=== PATIENT | female | born 1995 | race Caucasian/White ===

== ENCOUNTER 2018-01-25 18:32 | Emergency (ER) | payer OTHER ==
--- NOTE | 2018-01-25 18:53 | ER Document Report ---
ED General - General Chief Complaint: Headache Stated Complaint: HEADACHE Time Seen by Provider: 01/25/18 18:53 Notes: Patient is a 22-year-old female with history of migraines that presents to the emergency department for chief complaint of headache. Patient states that she has been having headaches for approximately 2 years, but they have been more frequent in the last 6 months in particular over the last 2 weeks. She was seen at a different emergency department 2 days ago, and was treated with a migraine cocktail, and she states it did not help much, just made her drowsy. She is been having associated nausea and vomiting, mild photophobia. She today took 800 mg of Motrin without much relief of her headache. She has been prescribed propranolol, and sumatriptan in the past, which have not been helping her. She has been trying to get an appointment with neurology but has not been able to yet. She denies any numbness, tingling or weakness, denies facial droop or slurred speech, or loss of vision. She states that these headaches are gradual in onset, and build up from the morning. She currently rates her headache as a 5 out of 10, and at worst it was an 8 out of 10. Past Medical History: Migraine headaches Past Surgical History: Denies surgical history Social History: Denies tobacco, alcohol or illicit drug use. Family History: Reviewed and noncontributory for presenting illness Allergies: Reviewed, see documented allergy list. REVIEW OF SYSTEMS: Other than noted above, the 12 point review of systems was reviewed with the patient and were negative, all pertinent findings are included in the HPI. PHYSICAL EXAMINATION: Vital signs reviewed, nursing noted reviewed. GENERAL: Well-appearing, well-nourished and in no acute distress. HEAD: Atraumatic, normocephalic. EYES: Eyes appear normal, extraocular movements intact, sclera anicteric, conjunctiva are normal. ENT: nares patent, oropharynx clear without exudates. Moist mucous membranes. NECK: Normal range of motion, supple without lymphadenopathy LUNGS: Breath sounds clear to auscultation bilaterally and equal. No wheezes rales or rhonchi. HEART: Regular rate and rhythm without murmurs ABDOMEN: Soft, nontender, normoactive bowel sounds. No rebound, guarding, or rigidity. No masses appreciated. EXTREMITIES: Nontender, good range of motion, no pitting or edema. NEUROLOGICAL: No focal neurological deficits. Moves all extremities spontaneously Motor and sensory grossly intact on exam. PSYCH: Normal mood, normal affect. SKIN: Warm, Dry, normal turgor, no rashes or lesions noted on exposed skin TRAVEL OUTSIDE OF THE [place] IN LAST 30 DAYS: No - Related Data Allergies/Adverse Reactions: No Known Allergies Allergy (Unverified 01/25/18 18:37) Past Medical History - Social History Smoking Status: Never Smoker Family History: Reviewed & Not Pertinent Physical Exam - Vital signs Vitals: Temp Pulse Resp BP Pulse Ox 98.1 F 60 14 124/69 98 01/25/18 18:41 01/25/18 18:41 01/25/18 18:41 01/25/18 18:41 01/25/18 18:41 Course - Re-evaluation Re-evalutation: Patient seen and examined vital signs reviewed. Laboratory data ordered as appropriate for the patient's presenting symptoms and complaint, with consideration of any critical or life threatening conditions that may be associated with their obtained history and exam as noted above. Patient was treated with IV fluids, Reglan, dexamethasone, and IV magnesium, after hCG was found to be negative, patient was also given Toradol, and Fioricet for her headache Patient's headache pattern is acute on chronic, she has had headaches for over 2 years, these are particularly different from the one she has had in the past, just seemingly more frequent. I do not feel the patient is high risk for subarachnoid hemorrhage, given lack of history of aneurysm, and pattern of her headaches. Results were reviewed when available and demonstrated negative hCG The patient was re-evaluated and was markedly improved, stated her headache was essentially resolved, nausea completely resolved. Evaluation was most consistent with headache, likely migraine type, advised patient of find a primary care physician, and get referral to neurology, she may need adjustment of maintenance medications to reduce her frequency of migraines, she is given a prescription for Fioricet to comment take as needed for headache, but if it became severe to return to the emergency department. Results were discussed with the patient at this point, after careful consideration I feel that that patient can be discharged from the emergency department, the patient was educated treatments and reasons to return to the emergency department based on their presumed diagnosis as noted above, they were advised to followup with a primary care physician in 2-3 days. Patient was agreeable to plan of care. *Note is created using voice recognition software and may contain spelling, syntax or grammatical errors. Laboratory 01/25/18 19:56 Urine HCG, Qual NEGATIVE - Vital Signs Vital signs: Temp Pulse Resp BP Pulse Ox 98.1 F 60 14 122/79 96 01/25/18 18:41 01/25/18 18:41 01/25/18 18:41 01/25/18 21:01 01/25/18 21:01 Discharge - Discharge Clinical Impression: Headache Qualifiers: Headache type: unspecified Headache chronicity pattern: acute headache Intractability: not intractable Qualified Code(s): R51 - Headache Condition: Stable Disposition: HOME, SELF-CARE Instructions: Headache ([facility]) Additional Instructions: Please do not hesitate to return to the emergency department if you have worsening symptoms or your headache becomes severe, and if you have any associated vomiting, blurred vision, numbness, tingling or weakness. Prescriptions: Butalb/Acetaminophen/Caffeine [Fioricet (50-325-40 mg) Tablet] 1 tab PO Q6H PRN #10 tab PRN Reason: headache Referrals: WALLY MURPHY MD [ACTIVE STAFF] - Follow up in 3-5 days (or another primary care. )
[2018-01-25] MEDS ORDERED: NORMAL SALINE 1000 ML 1,000 ML IV ONE (19:13)
[2018-01-25] MEDS ORDERED: METOCLOPRAMIDE HCL INJ/PF 10 MG/2 ML SDV IV ONE (19:14)
[2018-01-25] MEDS ORDERED: MAGNESIUM SULFATE/D5W 1 GM/100 ML RTUPB IV ONE (19:14)
[2018-01-25] MEDS ORDERED: DEXAMETHASONE SOD PHOS INJ 10 MG/1 ML VIAL IV ONE (19:14)
[2018-01-25] MEDS ORDERED: BUTALB/ACETAMINOPHEN/CAFFEINE 1 TAB EACH PO ONE (20:24)
[2018-01-25] MEDS ORDERED: KETOROLAC TROMETHAMINE INJ/PF 30 MG/1 ML SDV IV ONE (20:24)
[2018-01-25 22:19] VITALS: BP 131/80
== END 2018-01-25 22:18 | disposition home or self-care (01) ==
LOC: ER 18:32
DX: R51 Headache (principal); R11.2 Nausea with vomiting, unspecified; H53.149 Visual discomfort, unspecified; Z79.899 Other long term (current) drug therapy
CPT/HCPCS: 99283; 96361; 96375; 96365; 81025; J3490; J1885; J2765; J3475; J7030; J1100

== ENCOUNTER 2019-05-10 20:13 | Emergency (ER) | payer OTHER ==
--- NOTE | 2019-05-10 21:19 | ER Document Report ---
HPI - HPI Time Seen by Provider: 05/10/19 21:16 Pain Level: 3 Notes: Patient is a 24-year-old female no significant past medical history presents complaining of urinary burning, urgency, frequency that began a couple hours ago. She is otherwise able to eat and drink without difficulty. She is having normal bowel moods. No vaginal bleeding, odor, or discharge. Denies drug allergies. No other concerns or complaints. Denies any headache, fever, neck pain, URI, sore throat, chest pain, palpitations, syncope, cough, shortness of breath, wheeze, dyspnea, abdominal pain, nausea/vomiting/diarrhea, urinary retention, back pain, loss of control of bowel or bladder, numbness/tingling, saddle anesthesia, muscle paralysis/weakness, or rash. - ROS Systems Reviewed and Negative: Yes All other systems reviewed and negative - CONSTITUTIONAL Constitutional: DENIES: Fever, Chills - URINARY Urinary: DENIES: Dysuria, Urgency, Frequency - REPRODUCTIVE LMP: 04/22/19 Reproductive: DENIES: : Past Medical History - General Last Menstrual Period: 04/22/19 - Social History Smoking Status: Never Smoker Chew tobacco use (# tins/day): No Frequency of alcohol use: None Drug Abuse: None Family History: Reviewed & Not Pertinent Patient has suicidal ideation: No Patient has homicidal ideation: No Neurological Medical History: Reports: Hx Migraine Renal/ Medical History: Denies: Hx Peritoneal Dialysis Vertical Provider Document - CONSTITUTIONAL Agree With Documented VS: Yes Notes: PHYSICAL EXAMINATION: GENERAL: Well-appearing, well-nourished and in no acute distress. LUNGS: Breath sounds clear to auscultation bilaterally and equal. No wheezes rales or rhonchi. HEART: Regular rate and rhythm without murmurs, rubs, gallops. ABDOMEN: Soft, nontender, nondistended abdomen. No guarding, no rebound. Normal bowel sounds present. No CVA tenderness bilaterally. NEUROLOGICAL: Normal speech, normal gait. PSYCH: Normal mood, normal affect. SKIN: Warm, Dry, normal turgor, no rashes or lesions noted. - INFECTION CONTROL TRAVEL OUTSIDE OF THE [place] IN LAST 30 DAYS: No Course - Re-evaluation Re-evalutation: 05/10/19 22:18 Patient is an afebrile, well-hydrated, 24-year-old female who presents to the ED with an acute UTI. Vitals are acceptable without any significant tachycardia, tachypnea, or hypoxia. PE is otherwise unremarkable. Patient's abdomen is soft and nontender. She has no CVA tenderness bilaterally. See urinalysis results. Urine culture is pending. HCG negative. No other labs or imaging warranted at this time based on H&P. Low suspicion/risk for acute appendicitis, bowel obstruction, acute cholecystitis, acute cholangitis, perforated diverticulitis, incarcerated hernia, pancreatitis, perforated ulcer, peritonitis, sepsis, pelvic inflammatory disease, ectopic , tubo-ovarian abscess, ovarian torsion, or other systemic emergent condition at this time. Patient is aware that her condition can change from initial presentation and she needs to monitor symptoms closely and seek medical attention if any acute changes. I will send her home with a prescription for Keflex. Conservative measures otherwise for symptoms. Recheck with your PCM in 3-5 days. Consider consult with a Urologist. Return to the ED with any worsening/concerning symptoms otherwise as reviewed in discharge. Patient is in agreement. - Vital Signs Vital signs: Temp Pulse Resp BP Pulse Ox 98.7 F 81 16 116/68 100 05/10/19 20:18 05/10/19 20:18 05/10/19 20:18 05/10/19 20:18 05/10/19 20:18 Discharge - Discharge Clinical Impression: Acute UTI (urinary tract infection) Condition: Stable Disposition: HOME, SELF-CARE Instructions: Urinary Tract Infection ([facility]), Cephalexin ([facility]) Additional Instructions: Push fluids (i.e. water, cranberry juice) Proper hygenic technique Keep the skin clean Tylenol/ibuprofen as needed May use over the counter AZO for burning with urination Take medications as directed F/u with your PCM in 3-5 days for a recheck Consider consult with a Urologist for ongoing/worsening symptoms. Return to the ED with any worsening symptoms and/or development of fever, headache, chest pain, palpitations, syncope, shortness of breath, trouble breathing, abdominal pain, n/v/d, blood in stool/urine, loss of control of bowel/bladder, urinary retention, or other worsening symptoms that are concerning to you. Prescriptions: Cephalexin Monohydrate [Keflex 500 mg Capsule] 500 mg PO TID #21 capsule Referrals: VERENA GONZALEZ MD [Primary Care Provider] - Follow up as needed [facility] [Provider [facility]] - Follow up as needed
[2019-05-10 21:58] LABS: APPEARANCE,URINE SLIGHTLY-CLOUDY; BILIRUBIN,URINE NEGATIVE (NEGATIVE); COLOR,URINE YELLOW; GLUCOSE, URINE NEGATIVE (NEGATIVE); KETONES,URINE NEGATIVE (NEGATIVE); LEUKOCYTE ESTERASE,URINE MODERATE (NEGATIVE); NITRITE,URINE NEGATIVE (NEGATIVE); PROTEIN,URINE 30 mg/dL (NEGATIVE); URINE SPECIFIC GRAVITY 1.026; UROBILINOGEN,URINE NEGATIVE mg/dL (<2.0)
[2019-05-10] MEDS ORDERED: CEPHALEXIN 500 MG CAPSULE PO ONE (22:20)
[2019-05-10 22:45] VITALS: BP 137/65
== END 2019-05-10 22:46 | disposition home or self-care (01) ==
LOC: ER 20:13
DX: N39.0 Urinary tract infection, site not specified (principal)
CPT/HCPCS: 81001; 87086; 87088; 99283

== ENCOUNTER 2019-05-29 05:57 | Emergency (ER) | payer OTHER ==
[2019-05-29 08:56] LABS: A TYPE INFLUENZA AG NEGATIVE (NEGATIVE); B INFLUENZA AG NEGATIVE (NEGATIVE)
--- NOTE | 2019-05-29 09:52 | ER Document Report ---
Entered by VIOLETTA LIVINGSTON SCRIBE 05/29/19 0650 Acting as scribe for:RANDY MONET MD ED General - General Chief Complaint: Chest Pain Stated Complaint: FEVER Time Seen by Provider: 05/29/19 06:14 Mode of Arrival: Ambulatory Information source: Patient Notes: This 24-year-old female patient presents to the emergency department today with complaints of a 2-day history of a headache with associated chest heaviness which began yesterday. Patient states she also has generalized weakness. Patient describes her chest discomfort as a heavy and dull sensation, adding that it feels like she cannot take a deep breath. Patient states she has had some nausea as well. Patient did get a flu shot this year. Patient denies a cough, sick contacts, abdominal pain, vomiting, or diarrhea. TRAVEL OUTSIDE OF THE [place] IN LAST 30 DAYS: No - Related Data Allergies/Adverse Reactions: No Known Allergies Allergy (Verified 05/10/19 21:12) Past Medical History - General Information source: Patient - Social History Smoking Status: Never Smoker Cigarette use (# per day): No Frequency of alcohol use: None Drug Abuse: None Lives with: Family Family History: Reviewed & Not Pertinent Patient has suicidal ideation: No Patient has homicidal ideation: No Neurological Medical History: Reports: Hx Migraine Surgical Hx: Negative Review of Systems - Review of Systems Constitutional: See HPI, Weakness EENT: No symptoms reported Cardiovascular: No symptoms reported Respiratory: See HPI, Short of breath. denies: Cough Gastrointestinal: See HPI, Nausea. denies: Abdominal pain, Diarrhea, Vomiting Genitourinary: No symptoms reported Female Genitourinary: No symptoms reported Musculoskeletal: No symptoms reported Skin: No symptoms reported Hematologic/Lymphatic: No symptoms reported Neurological/Psychological: See HPI, Headaches -: Yes All other systems reviewed and negative Physical Exam - Vital signs Vitals: Temp Pulse Resp BP Pulse Ox 100.2 F 103 H 16 128/79 H 100 05/29/19 06:02 05/29/19 06:02 05/29/19 06:02 05/29/19 06:02 05/29/19 06:02 - Notes Notes: Physical Exam: General: Alert, appears well. HEENT: Normocephalic. Atraumatic. PERRL. Extraocular movements intact. Posterior oropharynx erythema without exudate, airway is patent. Minimally bulging left TM, right TM is bulging and pink. Neck: Supple. Non-tender. Respiratory: No respiratory distress. Clear and equal breath sounds bilaterally. Cardiovascular: Regular rate and rhythm. Abdominal: Normal Inspection. Non-tender. No distension. Normal Bowel Sounds. Back: No gross abnormalities. Extremities: Moves all four extremities. Upper extremities: Normal inspection. Normal ROM. Lower extremities: Normal inspection. No edema. Normal ROM. Neurological: Normal cognition. AAOx4. Normal speech. Psychological: Normal affect. Normal Mood. Skin: Warm. Dry. Normal color. Course - Re-evaluation Re-evalutation: 05/29/19 09:48 Patient resting in exam room not showing any signs of respiratory distress. - Vital Signs Vital signs: Temp Pulse Resp BP Pulse Ox 100.2 F 103 H 16 128/79 H 100 05/29/19 06:02 05/29/19 06:04 05/29/19 06:04 05/29/19 06:04 05/29/19 06:04 - Laboratory Laboratory results interpreted by me: Laboratory report shows negative influenza a and B, and also negative strep screen. Discharge - Discharge Clinical Impression: URI (upper respiratory infection), Acute pharyngitis, Acute right otitis media Condition: Stable Disposition: HOME, SELF-CARE Instructions: Acetaminophen, Upper Respiratory Illness ([facility]), Fever ([facility]) Additional Instructions: Otitis Media You have a middle ear infection (otitis media). This is usually a complication of a cold or sore throat. The middle ear cavity becomes filled with infection. Pressure and stretching of the ear drum cause pain. Antibiotics are required. A 10 day course is usually prescribed. A decongestant may be recommended if you have a "runny nose." You may need anesthetic drops or other pain medication. A follow-up exam may be recommended to make sure the infection has completely cleared. If the ear begins to drain, it means the ear drum has ruptured. This will usually heal spontaneously. However, it means you should keep the ear dry until re-examined by a doctor. Call the physician or return for examination at once if there is severe headache, stiff neck, confusion, increasing fever, or dizziness. You should improve significantly within two days. If you're not better, call the doctor. Recommend [id number] Tylenol cold and sinus as needed for pain, congestion or cough. Prescriptions: Amoxicillin 1 tab PO TID #30 tab I personally performed the services described in the documentation, reviewed and edited the documentation which was dictated to the scribe in my presence, and it accurately records my words and actions.
[2019-05-29] MEDS ORDERED: ACETAMINOPHEN 325 MG TABLET PO ONE (09:53)
[2019-05-29 10:21] VITALS: BP 130/63
== END 2019-05-29 10:20 | disposition home or self-care (01) ==
LOC: ER 05:57
DX: J06.9 Acute upper respiratory infection, unspecified (principal); J02.9 Acute pharyngitis, unspecified; H66.91 Otitis media, unspecified, right ear; R07.9 Chest pain, unspecified; R50.9 Fever, unspecified; R51 Headache; R11.0 Nausea; R53.1 Weakness; R06.02 Shortness of breath
CPT/HCPCS: 87070; 87804; 87880; 99283